=== PATIENT | female | born 1960 | race Caucasian/White ===

== ENCOUNTER 2018-08-11 07:30 | Inpatient (IN) | payer OTHER ==
[~2018-08-11] VITALS: Ht 167.6 cm; Wt 83.1 kg
[2018-10-11] VITALS (24 sets, daily range): BP systolic 119–187; BP diastolic 56–96; PULSE 55–88; RESP 13–29; Ht 167.6 cm; Wt 83.1 kg
[2018-10-11] MEDS ORDERED: POLYMYXIN/BACITRACIN 1L IRRIG ONE (06:56)
[2018-10-11] MEDS ORDERED: ATEN-51 PO (06:59)
[2018-10-11] MEDS ORDERED: ATOR40TA68 PO (07:00)
[2018-10-11] MEDS ORDERED: SEVOFLURANE 15 MIN ONE (07:00)
--- NOTE | 2018-10-11 07:35 | PREAC ---
Date/Time of Note Date/Time of Note DATE: 10/11/18 TIME: 07:32 Anesthesia Eval and Record Evaluation Time Pre-Procedure Interview DATE: 10/11/18 TIME: 07:32 Age 57 Sex female NPO: 8 hrs Preoperative diagnosis Rt ankle traumatic osteoarthritis Planned procedure Rt ankle reconstruction Past Medical History Past Medical History: Includes Cardio: HTN, Dyslipidemia Musculoskeletal: Osteoarthritis GI: Obesity Surgery & Anesthesia Issues No known issue Meds Anticoagulation: No Beta Kevan within 24 hr: Yes Reported Medications Atorvastatin* (Atorvastatin*) 40 Mg Tablet, 40 MG PO QHS, #30 TAB 10/11/18 Atenolol* (Atenolol*) 25 Mg Tablet, 25 MG PO DAILY, #30 TAB 10/11/18 Meds reviewed: Yes Allergies Coded Allergies: No Known Allergy (Unverified , 10/11/18) Allergies Reviewed: Yes Labs/Studies Labs Reviewed: Reviewed by anesthesiologist test: Negative Studies: ECG Pre-procedure Exam Last vitals Vital Signs Date Temp Pulse Resp B/P (MAP) Pulse Ox O2 O2 Flow FiO2 Time Delivery Rate 10/11/18 97.8 55 18 137/84 96 07:25 (101) Airway: Adequate mouth opening, Adequate thyromental dist Mallampati: Mallampati II Teeth: Normal Lung: Normal Heart: Normal ASA Physical Status ASA physical status: 3 Emergency: None Planned Anesthetic General/MAC: LMA Planned Pain Management Single shot nerve block, Parenteral pain med Pre-operative Attestations Prior to commencing anesthesia and surgery, the patient was re-evaluated, there was verification of: *The patient's identity *The results of appropriate recent lab work and preoperative vital signs *The above evaluation not changing prior to induction *Anesthetic plan, risk benefits, alternative and complications discussed with patient/family; questions answered; patient/family understands, accepts and wishes to proceed. ISRAEL HAYDEN MD Oct 11, 2018 07:35
--- NOTE | 2018-10-11 08:28 | HPN ---
Date/Time of Note Date/Time of Note DATE: 10/11/18 TIME: 08:28 Interval H&P Admission Note Pt. seen H&P reviewed: No system changes LEAH WILD DPM Oct 11, 2018 08:28
[2018-10-11] MEDS ORDERED: MIDAZOLAM 1 MG/ML 2 ML INJ ONE (08:37)
[2018-10-11] MEDS ORDERED: POLYMYXIN/BACITRACIN 1L IRRIG IRR ONE (11:54)
[2018-10-11] MEDS ORDERED: PROPOFOL 20 ML ONE (11:58)
[2018-10-11] MEDS ORDERED: LIDOCAINE 2% (SDV) 5 ML INJ ONE (11:58)
[2018-10-11] MEDS ORDERED: ROCURONIUM 50 MG INJ ONE (11:58)
[2018-10-11] MEDS ORDERED: CEFAZOLIN 1 GM INJ ONE (11:58)
[2018-10-11] MEDS ORDERED: ONDANSETRON 4 MG INJ ONE (11:58)
[2018-10-11] MEDS ORDERED: ROPIVACAINE 0.5 % 30 ML VIAL ONE (12:00)
--- NOTE | 2018-10-11 12:37 | PAC ---
Date/Time of Note Date/Time of Note DATE: 10/11/18 TIME: 12:37 Post-Anesthesia Notes Post-Anesthesia Note Last documented vital signs Vital Signs Date Temp Pulse Resp B/P (MAP) Pulse Ox O2 O2 Flow FiO2 Time Delivery Rate 10/11/18 97.8 55 18 137/84 96 07:25 (101) Activity: WNL Respiratory function: WNL Cardiovascular function: WNL Mental status: Baseline Pain reasonably controlled: Yes Hydration appropriate: Yes Nausea/Vomiting absent: Yes Comments BP:126/65, P:78, spo2:100%, T:98,8 ISRAEL HAYDEN MD Oct 11, 2018 12:37
--- NOTE | 2018-10-11 12:38 | OPR ---
Date/Time of Note Date/Time of Note DATE: 10/11/18 TIME: 12:38 Operative Report Procedure Date: Oct 11, 2018 Preoperative Diagnosis Right ankle degenerative joint disease Severe right ankle pain Right ankle equinus Contracted Achilles tendon Status post ORIF right ankle fracture Painful hardware right ankle Postoperative Diagnosis Right ankle degenerative joint disease Severe right ankle pain Right ankle equinus Contracted Achilles tendon Status post ORIF right ankle fracture Painful hardware right ankle Operation/Procedure Performed Hardware removal right ankle Total ankle replacement right ankle Right Achilles tendon lengthening Intraoperative use and interpretation of fluoroscopy Application of posterior splint Surgeon see signature line [employer] None Anesthesia Type: general Estimated Blood Loss: 10 - 50 ml's Transfusion none Specimen Bone from the right ankle joint. Hardware from right ankle. Grafts/Implants none Complications none Pt Condition Post Procedure: stable Disposition: PACU Indications This is a pleasant 57-year-old patient who has been suffering with chronic right ankle pain and significant equinus requiring surgical management. Patient had suffered previous ankle fracture and had undergone an open reduction with internal fixation of the right ankle. The recommended procedure was total ankle replacement with hardware removal and Achilles tendon lengthening. Risks and complications of this type of surgery was discussed with patient in great detail. Risks and complications discussed include, but are not limited to, postoperative infection, postoperative pain, chronic pain and disability, hardware failure, malunion, nonunion, delayed union, failure of surgery to correct the problem, need for additional surgical procedures, toenail changes, onychomycosis, deep venous thrombosis, gait disturbance, problems with shoegear, limitation of activities, limb loss and loss of life. Patient understands the discussion and agrees to the procedure. An informed consent was obtained, signed and placed in the chart. No guarantee or warrantee was given or implied as to the outcome of the procedure either in verbal or written form. Procedure Description The patient was seen in the preoperative unit. The proposed surgery was discussed with patient in great detail. Risks and complications of this type of surgery was discussed with patient in great detail. Opportunity was given to patient to ask questions and all questions were answered. The patient acknowledges understanding of the discussion. An informed consent was then obtained, signed and placed in the chart. Patient was taken to the operating room and was placed on the operating table in the supine position. All bony prominences were padded properly. A timeout was called by the circulating nurse. Everyone in the operating room was agreeable to the timeout. The patient was then placed under [general anesthesia] by the anesthesiologist. Tourniquet was applied to the right thigh. A 10 pound bag was placed under the ipsilateral hip. The [right lower extremity] was scrubbed,l prepped, and draped in the usual aseptic manner. An Esmarch bandage was utilized to exsanguinate the right lower extremity and the thigh tourniquet was inflated to 300 mmHg pressure. Procedure #1: Hardware removal right ankle Attention was directed to the right ankle joint. Using intraoperative fluoroscopy, position of the hardware was identified. A small incision was made on the medial malleolus using a #10 blade. Bleeders were cauterized as necessary. Dissection was made bluntly to the head of the screws. 2 screws were removed successfully. The wound was flushed with copious amounts of s terile normal saline and was closed primarily using 2-0 nylon in simple suture technique. The hardware that was present on the lateral malleolus was left alone since it was not interfering with the rest of the operation. There was a tight rope present which will be removed on the distal tibia side since abnormal interfere with positioning of the total joint. Procedure #2: Total ankle replacement right ankle Attention was directed to [the right ankle]. A 13 cm incision was made over the anterior [right ankle] using a sharp #10 blade. Dissection was carefully deepened through subcutaneous layer with care being taken to identify vital neurovascular structures. The extensor retinaculum was identified and transected sharply. I identified the tibialis anterior tendon, extensor hallucis longus tendon and extensor digitorum tendon. Dissection was made bluntly between the extensor digitorum longus tendon and extensor hallucis longus tendon exposing the neurovascular bundle. The neurovascular bundle was then carefully mobilized and retracted along with the tibialis anterior and extensor hallucis longus tendons medially, and the extensor digitorum longus tendon was retracted laterally exposing the anterior portion of the distal tibia and ankle joint. Periosteal dissection was further done and I was able to expose the ankle joint. Dissection was made to expose the medial and lateral gu tters. Significant amount of osteophytic changes noted. The ankle joint was found to be significantly degenerative with loose and missing cartilage of the talus and the distal tibial dome. Restricted range of motion was apparent. Next, the prefabricated cutting block for the distal tibia was placed over the distal tibia and positioning was confirmed using the C-arm. K wires were inserted to secure the correct position and the prefabricated block was removed. The metallic cutting block was inserted. I proceeded to cut the tibial side using a power saw. The distal tibial bone that was cut was removed. Bony edges were smoothed and using a rongeur and hand rasp. At this time, the component of the tight rope which was present in the distal tibia was easily removed and the sutures were cut. Next, the cutting block for the talus was positioned and similarly pinned into the talus. The metallic cutting block was then inserted and the talar cuts were made. I started to debride the medial lateral gutter an d cleaned out the joint of any loose bony fragments. The area was flushed with copious amounts of sterile normal saline. Next, I proceeded to insert the joint components. The first component was the tibial plate which was inserted and malleted into place. Next normal the talar component was placed and malleted into place. A size 6 polyurethane spacer was inserted. The wound was flushed with copious muscle sterile normal saline. The wound was then closed in layers and a placental byproduct was inserted at the level of the tendon and subcutaneous junction to help prevent adhesions. This included the total ankle replacement portion of the procedure. Procedure #3: Right Achilles tendon lengthening The patient's leg was placed in a frog-leg position. I made 3 akhtar on the Achilles tendon starting at the distal lateral aspect of the insertion site, with the next line about 1.5 cm on the medial side and a third line laterally about 1.5 cm proximally. Small stab incisions were made and a #11 blade was ins erted. First, the lateral portion of the distal Achilles tendon was cut to the midline, next the more proximal medial side was similarly on the medial and to the midline and finally the proximal lateral portion was cut similarly to the medial line. Once all the cuts were finalized, the foot was then placed in a dorsiflexed position and proceeded to lengthen the tendon to the desired 10-15 degrees dorsiflexion. The Achilles tendon was felt and was found to extend with those 3 incisions. All 3 incisions were flushed with copious muscle sterile normal saline. All 3 incisions were then closed using 4-0 Monocryl in simple suture technique. Intraoperative fluoroscopic pictures were obtained. Sterile dressing was applied to the right ankle. The thigh tourniquet was deflated at this time and prompt hyperemic response was noted to the digits of the right foot. Next, posterior splint was applied to the right lower extremity. The patient tolerated the procedure and anesthesia well. The anesthesiologist gave the patient a popliteal and saphenous block. She was then taken to the recovery room with vital signs stable and vascular status intact the right lower extremity. Patient will be admitted to the hospital for pain management postoperatively. Patient is to remain nonweightbearing on the right lower extremity. Patient will be followed in-house. Orders were placed in the chart. LEAH WILD DPM Oct 11, 2018 12:38
--- NOTE | 2018-10-11 12:38 | SIPON ---
Date/Time of Note Date/Time of Note DATE: 10/11/18 TIME: 12:36 Operative Report Preoperative Diagnosis Post traumatic right ankle arthritis Right ankle pain; chronic Postoperative Diagnosis Post traumatic right ankle arthritis Right ankle pain; chronic Operation/Procedure Performed Hardware removal right ankle Total ankle replacement right ankle Achilles tendon lengthening Fluoroscopy Posterior splint Surgeon see signature line anesthesiologist assistant certified None Anesthesia: general Estimated blood loss: 10 - 50 ml's Transfusion Required none Specimen Bone and hardware right ankle Grafts/Implants none Complications none LEAH WILD DPM Oct 11, 2018 12:38
[2018-10-11] MEDS ORDERED: DIPHENHYDRAMINE 50 MG INJ IV PRN (13:00)
[2018-10-11] MEDS ORDERED: KETOROLAC 30 MG INJ IV PRN (13:00)
[2018-10-11] MEDS ORDERED: NALOXONE (0.4 MG/ML) INJ IV PRN (13:00)
[2018-10-11] MEDS ORDERED: HYDROmorphONE 1 MG/5 ML IV SYRINGE IV PRN ×2 (13:00)
[2018-10-11] MEDS ORDERED: FENTAnyl 50 MCG/ML VIAL IV PRN (13:00)
[2018-10-11] MEDS ORDERED: MEPERIDINE 25 MG INJ IV PRN (13:00)
[2018-10-11] MEDS ORDERED: hydrALAzine 20 MG INJ IV PRN ×2 (13:00→21:30)
[2018-10-11] MEDS ORDERED: LABETALOL HCL 20MG INJ IV PRN (13:00)
[2018-10-11] MEDS ORDERED: ONDANSETRON 4 MG INJ IV PRN ×2 (13:00→21:30)
[2018-10-11] MEDS ORDERED: METOCLOPRAMIDE 10 MG INJ IV PRN (13:00)
[2018-10-11] MEDS: ATENOLOL 25 MG TAB PO SCH (15:59)
--- NOTE | 2018-10-11 16:04 | PN ---
DATE: 10/11/2018 SUBJECTIVE: The patient is doing well. Pain is well controlled. OBJECTIVE: VITAL SIGNS: Stable. She is afebrile. NECK: Supple, no JVD. LUNGS: Clear to auscultation bilaterally. CARDIAC: Regular rate and rhythm. No murmurs, rubs or gallops. ABDOMEN: Soft, nontender, nondistended. Normoactive bowel sounds. EXTREMITIES: Right distal lower extremity in clean dressing. NEUROLOGICAL: Grossly nonfocal. ASSESSMENT: 1. A 57-year-old female with post-traumatic right ankle arthritis. 2. Status post total right ankle replacement and hardware removal. 3. Hypertension. 4. Hyperlipidemia. PLAN: 1. Continue postop care. 2. Pain control. 3. Resume home medications. 4. Discharge planning, home in 1-2 days. Plan of care was discussed with Dr. Wild. Dictated By: JOE VO/JUAN Conf#: [id number] DID#: [id number] CC: LEAH WILD DPM;*EndCC*
[2018-10-11] MEDS ORDERED: ZOLPIDEM 5 MG TAB PO PRN (19:00)
[2018-10-11] MEDS: OXYCODONE/ACETAMINOPHEN (10/325) TAB PO PRN (20:10)
[2018-10-11] MEDS ORDERED: ATORVASTATIN 40 MG TAB PO SCH (21:00)
[2018-10-11] MEDS ORDERED: ACETAMINOPHEN 325 MG TAB PO PRN (21:30)
[2018-10-11] MEDS ORDERED: CEPASTAT LOZENGE MT PRN (21:30)
[2018-10-12] MEDS: OXYCODONE/ACETAMINOPHEN (10/325) TAB PO PRN ×3 (02:53→12:55)
[2018-10-12 04:00] VITALS: BP 120/67; PULSE 77; RESP 18
[2018-10-12 07:41] VITALS: BP 121/71; PULSE 75; RESP 18
[2018-10-12] MEDS: ATENOLOL 25 MG TAB PO SCH (08:38)
[2018-10-12] MEDS ORDERED: HYDR-4011 PO (09:17)
--- NOTE | 2018-10-12 09:18 | PDOCDIS ---
Discharge Instructions CONDITION [id number] Patient Condition: [id number] Good HOME CARE INSTRUCTIONS: [id number] Diet Instructions: [id number] FOLLOW UP/APPOINTMENTS Follow-up Plan Dr Hayden 1 week pcp 2 weeks JOE SANTOS MD Oct 12, 2018 09:18
--- NOTE | 2018-10-12 09:34 | PDOCDIS ---
Discharge Instructions DIAGNOSIS Discharge Diagnosis Traumatic right ankle arthritis Status post total right ankle replacement Hypertension Hyperlipidemia 57-year-old female was electively admitted by Dr. hayden. She underwent right total ankle replacement. There were no intraoperative or postoperative complications. Her pain is well controlled. She is in a stable condition for discharge to home. Patient carries a nonweightbearing status on right lower extremity. Home health PT was ordered. She was prescribed [place] for pain control. Patient will follow up with Dr. hayden as outpatient. CONDITION [id number] Patient Condition: [id number] Good HOME CARE INSTRUCTIONS: [id number] Diet Instructions: [id number] ring right lower extremity) FOLLOW UP/APPOINTMENTS Follow-up Plan Dr Hayden 1 week pcp 2 weeks JOE SANTOS MD Oct 12, 2018 09:34
== END 2018-10-12 13:45 | disposition home health service (06) | DRG 469 ==
LOC: REC 10-11 06:10 → MS1 10-11 14:22
PROVIDERS: ADMIT Podiatrist Foot & Ankle Surgery; ATTEND Podiatrist Foot & Ankle Surgery
PROC: 0QPG04Z Removal of Internal Fixation Device from Right Tibia, Open Approach (ICD-10-PCS; 2018-10-11)
PROC: 0L8N0ZZ Division of Right Lower Leg Tendon, Open Approach (ICD-10-PCS; 2018-10-11)
PROC: 0SRF0JZ Replacement of Right Ankle Joint with Synthetic Substitute, Open Approach (ICD-10-PCS; principal; 2018-10-11 07:30)
DX: M19.171 Post-traumatic osteoarthritis, right ankle and foot (principal); T84.84XA Pain due to internal orthopedic prosthetic devices, implants and grafts, initial encounter; M21.6X1 Other acquired deformities of right foot; Y79.8 Miscellaneous orthopedic devices associated with adverse incidents, not elsewhere classified; M67.01 Short Achilles tendon (acquired), right ankle; G89.29 Other chronic pain; Z47.2 Encounter for removal of internal fixation device; S82.891S Other fracture of right lower leg, sequela; X58.XXXS Exposure to other specified factors, sequela
CPT/HCPCS: 88300; 88304; 88311; J0360; J0690; J2250; J2405; J2795; J3010